=== PATIENT | female | born 1960 | race Caucasian/White ===

== ENCOUNTER 2018-05-17 10:41 | Emergency (ER) | payer BC ==
[~2018-05-17 10:41] MED LIST: AMOX-556 PO; ASPI-715 PO; CYCL10TA29 PO; FISH1CAP15 PO; HYDR-4240 PO; MULT-977 PO; [UNRECOGNIZED DRUG - CODE] PO
--- NOTE | 2018-05-17 11:08 | ER Report ---
History and Physical Time Seen By MD: 11:07 Hx. of Stated Complaint: Pt. has essential thrombocytosis. Recent plane travel to [place] and back. Now has left lower leg pain, feels "crampy". Pt. tried to see her Heme/Onc doctor, but could not get an appointment. Feels a little SOB, but feels like it's because she is back [place] altitude. Trip was 4 days long. HPI/ROS CHIEF COMPLAINT: left knee pain HISTORY OF PRESENT ILLNESS: Patient is a 57 year old female presenting to the ED for left knee pain. Patient states she Essential Thryombocytosis. She also had a scope done on her left knee a while ago. Patient noticed her left knee starting to bother her. Patient left for [place], [place] ([place]) last Sunday and arrived home on Sunday. Patient states her knee kept bothering her in while in [place]. Patient took some Aspirin while in [place]. Since being back home, patient states she is having some shortness of breath. Occurs when she is out working. Does not occur when she is just sitting down. Patient denies pain with deep breaths. Last few days the patient has noticed an increase in knee pain and pain radiating up and down her leg. Patient states her knee looks bruised but denies any swelling. REVIEW OF SYSTEMS: Constitutional: No fever, no chills. Eyes: No discharge. ENT: No sore throat. Cardiovascular: No chest pain, no palpitations. Respiratory: No cough, some shortness of breath Gastrointestinal: No abdominal pain, + nausea but no vomiting. + loose stools Genitourinary: No hematuria. Musculoskeletal: No back pain. Skin: No rashes. Neurological: No headache. Allergies: Coded Allergies: No Known Drug Allergies (Unverified , 05/17/18) Home Meds Active Scripts Apixaban (ELIQUIS) 5 Mg Tablet, 5 MG PO BID, #74 TAB Take 2 tabs by mouth twice a day for 7 days and then 1 tab twice a day there after. Prov:SILVER BULLARD FLEET ADMINISTRATOR 05/17/18 Reported Medications Aspirin (Low Dose Aspirin) 81 Mg Tablet.dr, 81 MG PO DAILY 04/17/12 Fish Oil/Dha/Epa (FISH OIL 1,200 MG FISH OIL) 1 Each Capsule, 1 EACH PO DAILY 04/17/12 Discontinued Reported Medications Iodine (Iodine) 30 Ml Liquid, 10 DROP PO DAILY 04/17/12 Discontinued Scripts Cyclobenzaprine Hcl (CYCLOBENZAPRINE HCL) 10 Mg Tablet, 10 MG PO TID, #30 TAB TAKE 1 TABLET BY MOUTH THREE TIMES A DAY Prov:ALEXIS ALEXIS Mando PHYSICAL TRAINER 04/27/14 Past Medical/Surgical History Patient has a history of essential thrombocytosis. Patient has a surgerical history of a left knee arthroscopy. Reviewed Nurses Notes: Yes Hx Smoking: No Smoking Status: Never Smoker Hx Substance Use Disorder: No Constitutional Vital Sign - Last 24 Hours 05/17/18 05/17/18 05/17/18 05/17/18 10:47 10:48 10:51 10:56 Temp 98.2 Pulse 107 102 100 Resp 16 11 B/P (MAP) 173/99 173/99 (123) Pulse Ox 93 93 92 O2 Delivery Room Air 05/17/18 05/17/18 05/17/18 05/17/18 11:00 11:01 11:06 11:11 Pulse 100 95 93 Resp 18 11 B/P (MAP) 163/111 (128) Pulse Ox 91 94 94 05/17/18 05/17/18 05/17/18 05/17/18 11:16 11:21 11:26 11:30 Pulse 96 98 98 Resp 11 13 20 B/P (MAP) 162/96 (118) Pulse Ox 91 92 89 05/17/18 05/17/18 05/17/18 05/17/18 11:31 11:36 11:51 11:51 Pulse 96 99 91 91 Resp 15 15 Pulse Ox 92 91 91 91 05/17/18 05/17/18 05/17/18 05/17/18 11:56 11:56 12:00 12:00 Pulse 98 98 Resp 21 21 B/P (MAP) 158/80 (106) 158/80 (106) Pulse Ox 93 93 05/17/18 05/17/18 05/17/18 05/17/18 12:01 12:01 12:06 12:06 Pulse 92 92 93 93 Resp 8 8 47 47 Pulse Ox 93 93 94 94 05/17/18 05/17/18 05/17/18 05/17/18 12:11 12:11 12:16 12:16 Pulse 92 92 93 93 Resp 10 10 11 11 Pulse Ox 93 93 93 93 4/5/19 4/5/19 4/5/19 4/5/19 12:21 12:21 12:26 12:26 Pulse 89 89 91 91 Resp 12 12 13 13 Pulse Ox 92 92 90 90 05/17/18 05/17/18 05/17/18 05/17/18 12:30 12:30 12:31 12:31 Pulse 89 89 Resp 8 8 B/P (MAP) 116/91 (99) 116/91 (99) Pulse Ox 96 96 05/17/18 05/17/18 05/17/18 05/17/18 12:36 12:36 12:41 12:41 Pulse ? 101 101 Pulse Ox 92 92 93 93 05/17/18 05/17/18 05/17/18 05/17/18 12:46 12:46 12:51 12:51 Pulse 96 96 88 88 Pulse Ox 92 92 93 93 05/17/18 05/17/18 05/17/18 05/17/18 13:06 13:06 13:11 13:11 Pulse 90 90 89 89 Resp 15 15 B/P (MAP) 141/97 (112) 141/97 (112) Pulse Ox 93 93 05/17/18 05/17/18/06/3005/17/18 13:16 13:16 13:21 13:21 Pulse 93 93 90 90 Resp 57 57 12 12 Pulse Ox 90 90 88 88 05/17/18 05/17/18/06/3005/17/18 13:26 13:26 13:30 13:30 Pulse 88 88 Resp 25 25 B/P (MAP) 139/92 (108) 139/92 (108) Pulse Ox 93 93 05/17/18 05/17/18/06/3005/17/18 13:31 13:31 13:36 13:36 Pulse 85 85 83 83 Resp 13 13 10 10 Pulse Ox 94 94 90 90 05/17/18 05/17/18 05/17/18 05/17/18 13:41 13:41 13:46 13:46 Pulse 81 81 87 87 Resp 15 15 12 12 Pulse Ox 88 88 91 91 05/17/18 05/17/18 05/17/18 05/17/18 13:51 13:51 13:56 13:56 Pulse 85 85 85 85 Resp 8 8 11 11 Pulse Ox 97 97 96 96 05/17/18 05/17/18 05/17/18 05/17/18 14:00 14:00 14:01 14:01 Pulse 80 80 Resp 15 15 B/P (MAP) 141/93 (109) 141/93 (109) Pulse Ox 97 97 05/17/18 05/17/18 05/17/18 05/17/18 14:06 14:06 14:11 14:11 Pulse 81 81 81 81 Resp 15 15 8 8 Pulse Ox 94 94 95 95 05/17/18 05/17/18 05/17/18 05/17/18 14:16 14:16 14:21 14:21 Pulse ? 85 85 Resp 17 17 8 8 Pulse Ox 98 98 94 94 05/17/18 05/17/18 05/17/18 05/17/18 14:26 14:26 14:30 14:30 Pulse 85 85 Resp 11 11 B/P (MAP) 124/89 (101) 124/89 (101) Pulse Ox 96 96 05/17/18 05/17/18 05/17/18 05/17/18 14:31 14:31 14:36 14:36 Pulse 90 90 84 84 Resp 17 17 10 10 Pulse Ox 94 94 97 97 05/17/18 05/17/18 05/17/18 05/17/18 14:41 14:41 14:46 14:46 Pulse 88 88 85 85 Resp 11 11 12 12 Pulse Ox 96 96 95 95 05/17/18 05/17/18 05/17/18 05/17/18 14:51 14:51 14:56 14:56 Pulse 85 85 89 89 Resp 9 9 28 28 Pulse Ox 95 95 96 96 05/17/18 05/17/18 05/17/18 05/17/18 15:01 15:01 15:06 15:06 Pulse 99 99 89 89 Resp 10 10 8 8 Pulse Ox 98 98 95 95 05/17/18 05/17/18 15:11 15:11 Pulse 87 87 Resp 11 11 Pulse Ox 93 93 Physical Exam General Appearance: The patient is alert, has no immediate need for airway protection and no signs of toxicity. Eyes: Pupils equal and round no pallor or injection. ENT, Mouth: Mucous membranes are moist. Respiratory: There are no retractions, lungs are clear to auscultation. Cardiovascular: Regular rate and rhythm. Pedal pulses equal bilaterally, 2+. Capillary refill < 2 seconds and equally bilaterally. Gastrointestinal: Abdomen is soft and non tender, no masses, bowel sounds normal. Neurological: Full sensation in lower extremities. Strength equal bilaterally Skin: Warm and dry, no rashes. DIFFERENTIAL DIAGNOSIS: After history and physical exam differential diagnosis was considered for DVT, venous insufficiency, and ligament strain. Medical Decision Making Data Points Result Diagram: 05/17/18 1105 05/17/18 1105 Laboratory Hematology Test 05/17/18 11:05 05/17/18 15:07 Red Blood Count 4.81 M/uL (4.17-5.56) Mean Corpuscular Volume 93.4 fL (80.0-96.0) Mean Corpuscular Hemoglobin 31.0 pg (26.0-33.0) Mean Corpuscular Hemoglobin Concent 33.2 g/dL (32.0-36.0) Red Cell Distribution Width 14.5 % (11.5-14.5) Mean Platelet Volume 9.4 fL (7.2-11.1) Neutrophils (%) (Auto) 63.2 % (39.4-72.5) Lymphocytes (%) (Auto) 27.8 % (17.6-49.6) Monocytes (%) (Auto) 6.7 % (4.1-12.4) Eosinophils (%) (Auto) 1.3 % (0.4-6.7) Basophils (%) (Auto) 1.0 % (0.3-1.4) Nucleated RBC Relative Count (auto) 0.1 /100WBC Neutrophils # (Auto) 4.5 K/uL (2.0-7.4) Lymphocytes # (Auto) 2.0 K/uL (1.3-3.6) Monocytes # (Auto) 0.5 K/uL (0.3-1.0) Eosinophils # (Auto) 0.1 K/uL (0.0-0.5) Basophils # (Auto) 0.1 K/uL (0.0-0.1) Nucleated RBC Absolute Count (auto) 0.00 K/uL D-Dimer Quantitative (PE/DVT) 1.29 ug/ml (0-0.50) Sodium Level 142 mmol/L (137-145) Potassium Level 4.0 mmol/L (3.5-5.0) Chloride Level 104 mmol/L (98-107) Carbon Dioxide Level 23 mmol/L (22-31) Blood Urea Nitrogen 16 mg/dl (7-18) Creatinine 0.70 mg/dl (0.52-1.04) Glomerular Filtration Rate Calc > 60.0 Random Glucose 90 mg/dl (75-110) Calcium Level 10.0 mg/dl (8.4-10.2) Total Bilirubin 0.2 mg/dl (0.2-1.3) Aspartate Amino Transf (AST/SGOT) 28 U/L (0-35) Alanine Aminotransferase (ALT/SGPT) 32 U/L (0-56) Alkaline Phosphatase 102 U/L (0-126) Troponin I < 0.012 ng/ml Total Protein 8.8 g/dl (6.3-8.2) Albumin 5.0 g/dl (3.5-5.0) Fibrinogen 408 mg/dL (169-449) Chemistry Test 05/17/18 11:05 05/17/18 15:07 White Blood Count 7.0 k/uL (4.5-11.0) Red Blood Count 4.81 M/uL (4.17-5.56) Hemoglobin 14.9 g/dL (12.0-16.0) Hematocrit 44.9 % (34.0-47.0) Mean Corpuscular Volume 93.4 fL (80.0-96.0) Mean Corpuscular Hemoglobin 31.0 pg (26.0-33.0) Mean Corpuscular Hemoglobin Concent 33.2 g/dL (32.0-36.0) Red Cell Distribution Width 14.5 % (11.5-14.5) Platelet Count 496 K/uL (150-450) Mean Platelet Volume 9.4 fL (7.2-11.1) Neutrophils (%) (Auto) 63.2 % (39.4-72.5) Lymphocytes (%) (Auto) 27.8 % (17.6-49.6) Monocytes (%) (Auto) 6.7 % (4.1-12.4) Eosinophils (%) (Auto) 1.3 % (0.4-6.7) Basophils (%) (Auto) 1.0 % (0.3-1.4) Nucleated RBC Relative Count (auto) 0.1 /100WBC Neutrophils # (Auto) 4.5 K/uL (2.0-7.4) Lymphocytes # (Auto) 2.0 K/uL (1.3-3.6) Monocytes # (Auto) 0.5 K/uL (0.3-1.0) Eosinophils # (Auto) 0.1 K/uL (0.0-0.5) Basophils # (Auto) 0.1 K/uL (0.0-0.1) Nucleated RBC Absolute Count (auto) 0.00 K/uL D-Dimer Quantitative (PE/DVT) 1.29 ug/ml (0-0.50) Glomerular Filtration Rate Calc > 60.0 Calcium Level 10.0 mg/dl (8.4-10.2) Total Bilirubin 0.2 mg/dl (0.2-1.3) Aspartate Amino Transf (AST/SGOT) 28 U/L (0-35) Alanine Aminotransferase (ALT/SGPT) 32 U/L (0-56) Alkaline Phosphatase 102 U/L (0-126) Troponin I < 0.012 ng/ml Total Protein 8.8 g/dl (6.3-8.2) Albumin 5.0 g/dl (3.5-5.0) Fibrinogen 408 mg/dL (169-449) Coagulation Test 05/17/18 11:05 05/17/18 15:07 D-Dimer Quantitative (PE/DVT) 1.29 ug/ml Fibrinogen 408 mg/dL EKG/Imaging EKG Interpretation 12 lead EKG: Rhythm: normal sinus rhythm with ventricular rate of 97 bpm Waterman: normal QRS: normal ST segments: normal Imaging CT CTA CHEST W & W/O CON HISTORY: elevated d-dimer, shortness of breath ADDITIONAL HISTORY: None. TECHNIQUE: CTA chest with intravenous contrast. Axial imaging acquired following administration of IV contrast timed for maximum opacification of the pulmonary arterial vasculature. Slab 3-D MIP reconstructed images were also created for further evaluation and interpretation. Reconstruction of the source data set includes multiplanar 2-D in the sagittal and coronal planes and 3-D reconstructed coronal slab MIP series. 3-D images were created by the technologist.Dose Lowering Technique One of the following dose optimization techniques was utilized in the performance of this exam: Automated exposure control; adjustment of the mA and/or kV according to the patient's size; or use of an iterative reconstruction technique. Specific details can be referenced in the facility's radiology CT exam operational policy. CONTRAST: 75 mL Isovue-370 COMPARISON: Two-view chest today FINDINGS: Lungs/pleura: There is minimal linear stranding in the inferior right upper lobe likely representing small band of discoid atelectasis Heart/vessels: There is intraluminal thrombus identified in the subsegmental arterial branches to the left upper lobe and left lower lobe and right upper lobe. Also noted is segmental and subsegmental thrombus in the right lower lobe. Mediastinum/lymph nodes: Negative. Visualized upper abdomen: Negative. Bones/soft tissues: Mild spondylotic changes in the cervical and thoracic spine Additional findings: None IMPRESSION: There is subsegmental arterial thrombus in the left upper lobe left lower lobe and right upper lobe in addition to segmental and subsegmental arterial thrombus in the right lower lobe. Results were called to SILVER BULLARD at 05/17/2018 1:55 PM. Report Dictated By: Margarita Valdivia MD at 05/17/2018 1:35 PM Report E-Signed By: Margarita Valdivia MD at 05/17/2018 1:55 PM Exam type: CHEST PA LAT History: shortness of breath Comparison: None. Findings: The lungs are free of acute effusions, infiltrates or edema. Cardiac silhouette is normal in size. The trachea is in midline. There mild spondylotic changes of the thoracic spine. IMPRESSION: 1. No acute cardiac pulmonary process is seen Report Dictated By: Margarita Valdivia MD at 05/17/2018 12:02 PM Report E-Signed By: Margarita Valdivia MD at 05/17/2018 12:03 PM Exam type: US VENOUS LOWER EXT LT History: leg pain Comparison: April 27, 2014. Findings: Left first 20 veins are imaged including the left common femoral vein greater saphenous veins show femoral vein, proximal popliteal vein, posterior tibial veins and anterior tibial veins appear compressible and demonstrated augmentation. The distal left popliteal vein and peroneal veins were not comp ressible and demonstrated thrombus IMPRESSION: 1. Finds are consistent with DVT of the distal popliteal vein and peroneal veins on the left. Findings were discussed with the emergency room by the technologist at the time the examination. Report Dictated By: Margarita Valdivia MD at 05/17/2018 1:13 PM Report E-Signed By: Margarita Valdivia MD at 05/17/2018 1:17 PM ED Course/Re-evaluation ED Course Patient was admitted to the room and placed in the bed. History and physical were obtained. Differential diagnoses were considered. An IV was placed and lab work drawn. Ultrasound was done on the left leg. Positive for DVT. CTA was done and was positive for PE's. All results of tests were discussed with the patient. Anticoagulation medications were discussed. Patient does not want to take Coumadin. Xarelto and Eliquis were discussed. Patient chose to take Eliquis. Further blood work was drawn and a dose of eliquis was given in the ED. Patient to follow up with her PCP. Patient verbalized understanding and agreed with the plan of care. Patient was discharged to home. Decision to Disposition Date: May 17, 2018 Decision to Disposition Time: 15:07 Depart Departure Latest Vital Signs Vital Signs Date Time Temp Pulse Resp B/P (MAP) Pulse Ox O2 Delivery O2 Flow Rate FiO2 05/17/18 15:11 87 11 93 05/17/18 14:30 124/89 (101) 05/17/18 10:47 98.2 Room Air Impression: Primary Impression: DVT (deep venous thrombosis) Additional Impression: Pulmonary emboli Condition: Improved Disposition: HOME OR SELF-CARE New Scripts Apixaban (ELIQUIS) 5 Mg Tablet 5 MG PO BID, #74 TAB Take 2 tabs by mouth twice a day for 7 days and then 1 tab twice a day there after. Prov: SILVER BULLARD FLEET ADMINISTRATOR 05/17/18 Patient Instructions: Deep Venous Thrombosis (ED) Additional Instructions: Get plenty of rest. Limit activity by pain. Take the medication as prescribed. Follow up with Zhanna Stone next week, Sunday or Sunday. Return to the ER with shortness of breath, bleeding that is not easily controlled or bleeding from your rectum. No strenuous exercise. Increase fluid intake. Problem Qualifiers Primary Impression: DVT (deep venous thrombosis) DVT location: lower extremity Affected thrombotic vein of extremity: popliteal Chronicity: acute Laterality: left Qualified Codes: I82.432 - Acute embolism and thrombosis of left popliteal vein Additional Impression: Pulmonary emboli Pulmonary embolism type: other Chronicity: acute Acute cor pulmonale presence: without acute cor pulmonale Qualified Codes: I26.99 - Other pulmonary embolism without acute cor pulmonale SILVER BULLARD May 17, 2018 11:08
[2018-05-17 11:35] LABS: PLATELET COUNT, AUTOMATED 496 K/uL (150-450)
[2018-05-17] MEDS ORDERED: IOPAMIDOL 76% 150 ML INFUS BTL 150 ML ONE (12:02)
[2018-05-17] MEDS ORDERED: NS(*) 0.9% 50 ML BAG 50 ML ONE (12:02)
--- NOTE | 2018-05-17 12:09 | RADIOLOGY IMAGING REPORT ---
FACILITY: [facility] - [place] PATIENT NAME: Anna Back : 1960 MR: [id number] V: [id number] EXAM DATE: ORDERING PHYSICIAN: SILVER BULLARD TECHNOLOGIST: Location: [facility] Patient: Anna Back : 1960 Visit/Account:[id number] Date of Sevice: 05/17/2018 Exam type: CHEST PA LAT History: shortness of breath Comparison: None. Findings: The lungs are free of acute effusions, infiltrates or edema. Cardiac silhouette is normal in size. The trachea is in midline. There mild spondylotic changes of the thoracic spine. IMPRESSION: 1. No acute cardiac pulmonary process is seen Report Dictated By: Margarita Valdivia MD at 05/17/2018 12:02 PM Report E-Signed By: Margarita Valdivia MD at 05/17/2018 12:03 PM WSN:[email or web address]
--- NOTE | 2018-05-17 12:14 | EKG ---
FACILITY: [facility] - [place] PATIENT NAME: KAE MAYNARD : [id number] MR: [id number] V: [id number] EXAM DATE: ORDERING PHYSICIAN: SILVER BULLARD TECHNOLOGIST: Test Reason : SOB Blood Pressure : / mmHG Vent. Rate : 097 BPM Atrial Rate : 097 BPM P-R Int : 150 ms QRS Dur : 094 ms QT Int : 350 ms P-R-T Axes : 052 054 062 degrees QTc Int : 444 ms Normal sinus rhythm Normal ECG No previous ECGs available Confirmed by Zaid Alaniz ([id number]) on 05/17/2018 6:20:45 PM Referred By: Confirmed By:Zaid Richardson
--- NOTE | 2018-05-17 13:21 | RADIOLOGY IMAGING REPORT ---
FACILITY: [facility] PATIENT NAME: Anna Back : 1960 MR: [id number] V: [id number] EXAM DATE: ORDERING PHYSICIAN: SILVER BULLARD TECHNOLOGIST: Location: [facility] - [place] Patient: Anna Back : 1960 Visit/Account:[id number] Date of Sevice: 05/17/2018 Exam type: US VENOUS LOWER EXT LT History: leg pain Comparison: April 27, 2014. Findings: Left first 20 veins are imaged including the left common femoral vein greater saphenous veins show fe moral vein, proximal popliteal vein, posterior tibial veins and anterior tibial veins appear compress ible and demonstrated augmentation. The distal left popliteal vein and peroneal veins were not compr essible and demonstrated thrombus IMPRESSION: 1. Finds are consistent with DVT of the distal popliteal vein and peroneal veins on the left. Findings were discussed with the emergency room by the technologist at the time the examination. Report Dictated By: Margarita Valdivia MD at 05/17/2018 1:13 PM Report E-Signed By: Margarita Valdivia MD at 05/17/2018 1:17 PM WSN:[email or web address]
--- NOTE | 2018-05-17 13:59 | RADIOLOGY IMAGING REPORT ---
FACILITY: [facility] PATIENT NAME: Anna Back : 1960 MR: [id number] V: [id number] EXAM DATE: ORDERING PHYSICIAN: SILVER BULLARD TECHNOLOGIST: [place] [facility] [place]: Anna Back : 1960 Visit/Account:[id number] Date of Sevice: 05/17/2018 CT CTA CHEST W & W/O CON HISTORY: elevated d-dimer, shortness of breath ADDITIONAL HISTORY: None. TECHNIQUE: CTA chest with intravenous contrast. Axial imaging acquired following administration of IV contrast timed for maximum opacification of the pulmonary arterial vasculature. Slab 3-D MIP atif nstructed images were also created for further evaluation and interpretation. Reconstruction of the [facility] data set includes multiplanar 2-D in the sagittal and coronal planes and 3-D reconstructed david nal slab MIP series. 3-D images were created by the technologist.Dose Lowering Technique One of the following dose optimization techniques was utilized in the performance of this exam: Autom ated exposure control; adjustment of the mA and/or kV according to the patient's size; or use of an i terative reconstruction technique. Specific details can be referenced in the facility's radiology C T exam operational policy. CONTRAST: 75 mL Isovue-370 COMPARISON: Two-view chest today FINDINGS: Lungs/pleura: There is minimal linear stranding in the inferior right upper lobe likely representing small band of discoid atelectasis Heart/vessels: There is intraluminal thrombus identified in the subsegmental arterial branches to th e left upper lobe and left lower lobe and right upper lobe. Also noted is segmental and subsegmental thrombus in the right lower lobe. Mediastinum/lymph nodes: Negative. Visualized upper abdomen: Negative. Bones/soft tissues: Mild spondylotic changes in the cervical and thoracic spine Additional findings: None IMPRESSION: There is subsegmental arterial thrombus in the left upper lobe left lower lobe and right upper lobe i n addition to segmental and subsegmental arterial thrombus in the right lower lobe. Results were called to SILVER BULLARD at 05/17/2018 1:55 PM. Report Dictated By: Margarita Valdivia MD at 05/17/2018 1:35 PM Report E-Signed By: Margarita Valdivia MD at 05/17/2018 1:55 PM WSN:[email or web address]
[2018-05-17 14:30] VITALS: BP 124/89
[2018-05-17] MEDS ORDERED: APIX5TAB PO (15:05)
[2018-05-17] MEDS ORDERED: APIXABAN 2.5 MG TABLET PO SCH (15:10)
== END 2018-05-17 15:25 | disposition home or self-care (01) ==
LOC: ER 11:09
DX: I82.432 Acute embolism and thrombosis of left popliteal vein (principal); I26.99 Other pulmonary embolism without acute cor pulmonale; D47.3 Essential (hemorrhagic) thrombocythemia
CPT/HCPCS: 71046; 71275; 81241; 81291; 83090; 84484; 85025; 85210; 85240; 85302; 85303; 85305; 85306; 85379; 85384; 85610; 85613; 85670; 85730; 86146; 86147; 93005; 93971; 99284; J7050; Q9967; 82040; 82247; 82310; 82374; 82435; 82565; 82947; 84075; 84132; 84155; 84295; 84450; 84460; 84520

== ENCOUNTER → 2018-05-24 | Outpatient (CLI) | payer BC ==
[~2018-05-24] MED LIST changes: +APIX5TAB PO
--- NOTE | 2018-05-24 10:57 | RADIOLOGY IMAGING REPORT ---
FACILITY: [facility] - [place] PATIENT NAME: Anna Back : 1960 MR: [id number] V: [id number] EXAM DATE: ORDERING PHYSICIAN: JEET ACOSTA TECHNOLOGIST: Location: [facility] - [place] Patient: Anna Back : 1960 Visit/Account:[id number] Date of Sevice: 05/24/2018 EXAMINATION: Abdominal ultrasound complete HISTORY: Left upper quadrant pain COMPARISON: February 28, 2013 FINDINGS: Gallbladder: No stones, wall thickening, pericholecystic fluid or sonographic Rodriguez sign. Liver: There is mildly enlarged measuring 18.1 cm in length. There is increased echogenicity through out the liver which can be seen with fatty infiltration or other infiltrative process Common duct: Normal measuring 1.8 mm. Pancreas: The head and body appear grossly unremarkable. The tail was not well seen Spleen: Borderline enlarged although normal echogenicity measuring 12 cm in length. Kidneys: Normal in size and echogenicity, the right measures 10.5 cm in length, and the left 11.8 cm . No hydronephrosis. There is a 1.3 cm hypoechoic region in the lower pole the left kidney Upper abdominal aorta and IVC: Negative. Ascites: None. IMPRESSION: Liver is mildly enlarged with increased echogenicity throughout which can be seen with fatty infiltra tion or other infiltrative process Portal and splenic megaly 1.3 cm hypoechoic region lower pole the left kidney not ideally characterize. This could represent a n incidental cyst however if of concern CT or MR recommended Report Dictated By: Margarita Valdivai MD at 05/24/2018 10:39 AM Report E-Signed By: Margarita Valdivia MD at 05/24/2018 10:54 AM WSN:[email or web address]
== END ==
LOC: US 05-15 01:02
PROVIDERS: ATTEND Physician Assistant
DX: R10.32 Left lower quadrant pain (principal); R07.82 Intercostal pain
CPT/HCPCS: 76700

== ENCOUNTER → 2018-06-13 | Outpatient (CLI) | payer BC ==
[~2018-06-13] MED LIST changes: +IOPAMIDOL 76% 150 ML INFUS BTL 150 ML ONE
--- NOTE | 2018-06-13 12:09 | RADIOLOGY IMAGING REPORT ---
FACILITY: [facility] - [place] PATIENT NAME: Anna Back : 1960 MR: [id number] V: [id number] EXAM DATE: ORDERING PHYSICIAN: ABHIJEET VALLES TECHNOLOGIST: Location: [facility] - [place] Patient: nAna Back : 1960 Visit/Account:[id number] Date of Sevice: 06/13/2018 CT ABDOMEN WITH AND WITHOUT CONTRAST CLINICAL INFORMATION: Abnormal kidney on prior scan TECHNIQUE: Axial CT images were obtained through the abdomen before and after injection of nonionic iodinated intravenous contrast. Reformatted coronal and sagittal images were also obtained. Pre cont rast and delayed images were obtained. Dose Lowering Technique One of the following dose optimization techniques was utilized in the performance of this exam: Autom ated exposure control; adjustment of the mA and/or kV according to the patient's size; or use of an i terative reconstruction technique. Specific details can be referenced in the facility's radiology C T exam operational policy. CONTRAST: 75ml of IV Isovue-370 contrast. COMPARISON: Abdomen ultrasound May 24, 2018. FINDINGS: Lower lung herrera: Limited views lower lung field are unremarkable. Liver: There is diffuse hepatic steatosis and hepatomegaly. The liver measures 19.5 cm in length Biliary: Gallbladder appears unremarkable as well as the intra and extra hepatic biliary system. Pancreas: Normal appearance. Spleen: Spleen is borderline enlarged. An accessory splenule Adrenal glands: Unremarkable. Kidneys / retroperitoneum: Kidneys appear unremarkable. Specifically no demonstration of a renal cys t or solid mass. There is no evidence of hydronephrosis or hydroureter. Bowel / peritoneum / mesenteries: There is mild diverticulosis of the left-sided the colon although n o CT evidence of acute diverticulitis Vessels: There are minimal atherosclerotic calcifications in the abdominal aorta atherosclerotic calc ification seen throughout a nonaneurysmal abdominal aorta and branches. Musculoskeletal / Body wall: Mild spondylotic changes of the thoracolumbar spine. There is a tiny um bilical hernia containing fat Lymph node assessment: No pathologic adenopathy identified. IMPRESSION: 1. Diffuse hepatic steatosis and mild hepatomegaly Borderline splenomegaly No demonstration of a renal mass, cystic or solid 2. 3. Report Dictated By: Margarita Valdivia MD at 06/13/2018 11:36 AM Report E-Signed By: Margarita Valdivia MD at 06/13/2018 12:04 PM WSN:CORBY
== END ==
LOC: CT 00:30
PROVIDERS: ATTEND Internal Medicine Hematology
DX: K76.0 Fatty (change of) liver, not elsewhere classified (principal); R16.0 Hepatomegaly, not elsewhere classified
CPT/HCPCS: 74170; Q9967

== ENCOUNTER 2018-08-22 08:45 | Outpatient (RCR) | payer BC ==
[2018-06-06 12:13] VITALS: BP 127/87
--- NOTE | 2018-06-06 22:19 | [facility] ONCOLOGY NOTE ---
EVENT DATE: June 06, 2018 DIAGNOSES 1. Deep venous thrombosis, left lower extremity. 2. Bilateral pulmonary embolism. 3. 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 4. 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 CHIEF COMPLAINT Patient is here today for followup of her DVT and pulmonary embolism and recent possible left renal cyst. HISTORY OF PRESENT ILLNESS Patient is a 57-year-old female who presented recently after a trip to [place] on the May with some abnormalities in her left calf area and unexplained shortness of breath. Patient had a Doppler ultrasound done on the May, which showed DVT of the distal popliteal and the left peroneal veins. CTA chest on the May did reveal subsegmental thrombosis in the left upper lobe, left lower lobe, and right upper lobe, and segment and subsegmental arterial thrombus in the right lower lobe of the lung. She had also an abdominal ultrasound on the May, which showed a mildly enlarged liver, possible fatty infiltration, with 1.3 cm hypoechoic region in the lower pole of the left kidney with possibility to be a renal cyst. Patient had a CBC on the May, which was normal except for platelet count high at 496,000. Her chem panel showed total protein of 8.8, and homocysteine level was 11. When the patient was diagnosed with DVT/pulmonary embolism, a thrombophilia workup came back positive for low protein S function at 33%, and double heterozygous state for methylenetetrahydrofolate reductase mutation, C677T and [id number] mutation. Lupus anticoagulant, beta-2 glycoprotein 1 antibodies, and anti-cardiolipin antibiotics all came back within the normal range. PAST MEDICAL HISTORY 1. DVT left lower extremity. 2. Bilateral pulmonary embolism. 3. Essential thrombocythemia with positive JAK2 mutation. PAST SURGICAL HISTORY Left knee surgery. FAMILY HISTORY Father with a stroke, and he had also coronary artery disease. Mother with colon cancer. SOCIAL HISTORY Patient is with four sons. She is a homemaker. Denies any abuse of tobacco, alcohol, or drugs. CURRENT MEDICATIONS Eliquis 5 mg twice daily. ALLERGIES No known drug allergies. REVIEW OF SYSTEMS CONSTITUTIONAL: No appetite or weight change. No fever, chills, or sweating. No recent infection. HEENT: Ears: No tinnitus or hearing problem. Nose: No nasal discharge or epistaxis. Throat: No sore throat or mouth ulcers. Eyes: No diplopia or visual changes. RESPIRATORY: No shortness of breath. No cough, expectoration, or hemoptysis. CARDIOVASCULAR: No chest pain, orthopnea, or paroxysmal nocturnal dyspnea (PND). No edema. No palpitations. GASTROINTESTINAL: She has occasional nausea and diarrhea. No vomiting or constipation. No change in bowel movements. No heartburn or swallowing difficulties. No abdominal pain. No jaundice. No hematemesis, melena, or rectal bleeding. GENITOURINARY: No hematuria or dysuria. MUSCULOSKELETAL: She has pain in her left knee. NEUROLOGIC: No tingling or numbness in the hands or feet. No headaches or convulsions. HEMATOLOGIC/LYMPHATIC: No bleeding or easy bruising. No weakness or fatigue. No enlarged lymph nodes. SKIN: No skin rash or lumps. PSYCHIATRIC: No anxiety or depression. PHYSICAL EXAMINATION GENERAL: Looks stable. Well developed, well nourished, and in no acute distress. VITAL SIGNS: Blood pressure 127/87, pulse 94 per minute, respirations 16 per minute, temperature 97, pulse oximetry 93% on room air. HEENT: Head: Atraumatic. No sinus tenderness to palpation. Eyes: No icterus or conjunctivitis. Mouth and Throat: No oral thrush or mucositis. NECK: Supple. No cervical or supraclavicular lymphadenopathy. LUNGS: Clear to auscultation and percussion bilaterally. HEART: Regular rate and rhythm. No gallops, murmurs, clicks, or rubs. ABDOMEN: Soft and lax. No tenderness. No hepatosplenomegaly. No masses. EXTREMITIES: No cyanosis, clubbing, or edema. LYMPHATICS: No peripheral lymphadenopathy. NEUROLOGIC: Conscious, alert, and oriented times three. No focal motor or sensory deficits. PSYCHIATRIC: Mood and affect appear normal. SKIN: No skin rash, bruise, or purpuric eruption. ASSESSMENT 1. Deep venous thrombosis, left lower extremity, and bilateral pulmonary embolism diagnosed on the May. Patient currently on Eliquis 5 mg twice daily. I am planning to continue Eliquis at the same dose for at least six months, and I will complete her thrombophilia workup. If the workup will show an underlying disease, then we may extend her anticoagulation for a total of one year. I explained that to the patient. She is agreeable with the plan of management. After reviewing her thrombophilia workup, I am planning to request the prothrombin gene mutation, anti-phospholipin antibody panel, and I will repeat protein S activity free and functional antigen level for protein S because it was low. 2. 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 Her homocysteine level was slightly elevated at 11. I am planning to continue methylated folic acid, which the patient is using right now, and I will repeat her level of homocysteine at this time, too. 3. Essential thrombocythemia with positive JAK2 mutation. Patient is not on any treatment as her platelet count is less than 600,000. Her current platelet count done on the May was 486,000. I am planning to consider treatment for her essential thrombocythemia if her platelet count increases above 600,000. I explained that to the patient. She is agreeable with the plan of management. PLAN 1. Prothrombin gene mutation. 2. Anti-phospholipin antibody panel. 3. Protein S functional antigen level and free. 4. Homocysteine level. 5. CT abdomen to evaluate for the abnormal ultrasound of the left kidney. 6. Patient to return in two weeks for further evaluation and management. 7. Patient to contact us for any new concerns or complaints. FREYA
[2018-07-05 16:38] VITALS: BP 148/93
--- NOTE | 2018-07-06 16:04 | ONCOLOGY FOLLOW UP NOTE ---
EVENT DATE: July 05, 2018 DIAGNOSES 1. Deep venous thrombosis, left lower extremity. 2. Bilateral pulmonary embolism. 3. 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 4. 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 CHIEF COMPLAINT Patient is here today for followup of her DVT and pulmonary embolism and possible renal cyst. HEMATOLOGY HISTORY Patient is a 57-year-old female who presented recently after a trip to [place] on the May with some abnormalities in her left calf area and unexplained shortness of breath. Patient had a Doppler ultrasound done on the May, which showed DVT of the distal popliteal and the left peroneal veins. CTA chest on the May did reveal subsegmental thromboses in the left upper lobe, left lower lobe, and right upper lobe, and segment and subsegmental arterial thrombi in the right lower lobe of the lung. She had also an abdominal ultrasound on the May, which showed a mildly enlarged liver, possible fatty infiltration, with 1.3 cm hypoechoic region in the lower pole of the left kidney with possibility to be a renal cyst. Patient had a CBC on the May, which was normal except for platelet count high at 496,000. Her chem panel showed total protein of 8.8, and homocysteine level was 11. When the patient was diagnosed with DVT/pulmonary embolism, a thrombophilia workup came back positive for low protein S function at 33% and double heterozygous state for methylenetetrahydrofolate reductase mutation, C677T and [id number] mutation. Lupus anticoagulant, beta-2 glycoprotein 1 antibodies, and anti-cardiolipin antibiotics all came back within the normal range. Prothrombin gene mutation was declined by her insurance. Anti- phospholipid antibody panel came back negative. Protein S antigen was normal at 95, while routine S free was low at 21, and the protein S function was low at 35. HISTORY OF PRESENT ILLNESS Patient is here today for followup of her hypercoagulable state and DVT and pulmonary embolism. She is complaining of a little epistaxis related to dry weather. She has also a little fatigue today, but other than that, she is doing fine. Her breathing is getting much better on . PAST MEDICAL HISTORY 1. DVT left lower extremity. 2. Bilateral pulmonary embolism. 3. Essential thrombocythemia with positive JAK2 mutation. PAST SURGICAL HISTORY Left knee surgery. FAMILY HISTORY Father with a stroke, and he had also coronary artery disease. Mother with colon cancer. SOCIAL HISTORY Patient is with four sons. She is a homemaker. Denies any abuse of tobacco, alcohol, or drugs. CURRENT MEDICATIONS Eliquis 5 mg twice daily. ALLERGIES No known drug allergies. REVIEW OF SYSTEMS CONSTITUTIONAL: No appetite or weight change. No fever, chills, or sweating. No recent infection. HEENT: Ears: No tinnitus or hearing problem. Nose: No nasal discharge. She has a little epistaxis. Throat: No sore throat or mouth ulcers. Eyes: No diplopia or visual changes. RESPIRATORY: No shortness of breath. No cough, expectoration, or hemoptysis. CARDIOVASCULAR: No chest pain, orthopnea, or paroxysmal nocturnal dyspnea (PND). No edema. No palpitations. GASTROINTESTINAL: No nausea or vomiting. No diarrhea or constipation. No change in bowel movements. No heartburn or swallowing difficulties. No abdominal pain. No jaundice. No hematemesis, melena, or rectal bleeding. GENITOURINARY: No hematuria or dysuria. MUSCULOSKELETAL: No pain in the muscles, joints, or bones. NEUROLOGIC: No tingling or numbness in the hands or feet. No headaches or convulsions. HEMATOLOGIC/LYMPHATIC: No bleeding or easy bruising. She is mildly fatigued. No enlarged lymph nodes. SKIN: No skin rash or lumps. PSYCHIATRIC: No anxiety or depression. PHYSICAL EXAMINATION GENERAL: Looks stable. Well developed, well nourished, and in no acute distress. VITAL SIGNS: Blood pressure 148/93, pulse 86 per minute, respirations 16 per minute, temperature 97, pulse ox 92% on room air. HEENT: Head: Atraumatic. No sinus tenderness to palpation. Eyes: No icterus or conjunctivitis. Mouth and Throat: No oral thrush or mucositis. NECK: Supple. No cervical or supraclavicular lymphadenopathy. LUNGS: Clear to auscultation and percussion bilaterally. HEART: Regular rate and rhythm. No gallops, murmurs, clicks, or rubs. ABDOMEN: Soft and lax. No tenderness. No hepatosplenomegaly. No masses. EXTREMITIES: No cyanosis, clubbing, or edema. LYMPHATICS: No peripheral lymphadenopathy. NEUROLOGIC: Conscious, alert, and oriented times three. No focal motor or sensory deficits. PSYCHIATRIC: Mood and affect appear normal. SKIN: No skin rash, bruise, or purpuric eruption. ASSESSMENT 1. Deep venous thrombosis, left lower extremity, and bilateral pulmonary embolism diagnosed on the May. Patient currently on Eliquis 5 mg twice daily. I am planning to continue Eliquis for a total of six months. Completion of the thrombophilia workup showed low protein S free at 21 and low protein S function at 35, but routine S antigen was normal at 95. Anti- phospholipid antibody was negative. Prothrombin gene mutation was requested, but was declined by her insurance. I am planning to continue the anticoagulation for six months, and I will see her after that for further evaluation and management. 2. 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 Her homocysteine level was slightly elevated at 11. Patient started methylated folic acid, and vitamin B12 was added, and she is doing fine with that currently. I am planning to repeat her homocysteine level in six months. 3. Essential thrombocythemia with positive JAK2 mutation. Patient currently not on any treatment as her platelet count is less than 600,000. Her last platelet count on the May was 486,000. I will consider treatment if her platelet count is above 600,000 to 800,000. 4. Low protein S free at 22 and low protein S function at 35 are suggestive of protein S deficiency, but the patient is on Eliquis, and direct thrombin inhibitors could affect the level of protein S. I am planning to continue the anticoagulation for six months, and then I will repeat the protein S panel a month after we stop her anticoagulation. PLAN 1. Continue followup. 2. Continue Eliquis 5 mg twice daily. 3. Patient to return in three months with CTA chest. 4. Patient to contact us for any new concerns or complaints. FREYA
--- NOTE | 2018-07-30 09:21 | NUR ---
Called patient back regarding the message that she left on Sunday. She is expressing concern over having another CT scan in September prior to her follow up appointment with Dr. Brennan due to radiation exposure. She also wants to know if she can take fulvic acid OTC. Nurse attempted to reassure the patient that the radiation exposure that she would receive with a CT angiogram was minimal. She expressed concern regarding her "bone marrow" and that she has her current condition due to radiation exposure as a child. Nurse again attempted to reassure her that Dr. Brennan would tell her that we would need to evaluate risk vs. benefit and that the goal was to be able to take her off of the Eliquis. After answering her questions the patient would still like the RN to review the case with Dr. Brennan on and call her back. Nurse agreed with the plan and informed the patient that she would contact her after 5 p.m. on . She agrees with the plan of care.
--- NOTE | 2018-08-02 12:01 | NUR ---
Reviewed patients concerns with Dr. Deshpande with regard to the CTA to be done in September. She was reassured that it was safe for her to proceed with the scan but that ultimately it is her choice whether to obtain the scan. She was instructed that per Dr. Deshpande as long as she was not having any chest pain or shortness of breath he would support her not having the scan. She was also told that it was ok from his perspective for her to take OTC fulvic acid. She states that she will plan at this time to have the CTA in September unless as the time nears she "feels that she should not". Questions were answered. Patient agrees with the plan of care.
[~2018-08-22 08:45] MED LIST changes: -IOPAMIDOL 76% 150 ML INFUS BTL 150 ML ONE
[2018-08-22 08:53] VITALS: BP 132/96
== END 2018-09-03 ==
LOC: SPU 08:45
PROVIDERS: ATTEND Internal Medicine Hematology
DX: I82.402 Acute embolism and thrombosis of unspecified deep veins of left lower extremity (principal); I26.99 Other pulmonary embolism without acute cor pulmonale; Z79.01 Long term (current) use of anticoagulants; E72.12 Methylenetetrahydrofolate reductase deficiency; D69.6 Thrombocytopenia, unspecified
CPT/HCPCS: 36415; 83090; 83516; 85305; 85306; 86148; 99212